=== PATIENT | male | born 2000 | race Caucasian/White ===

== ENCOUNTER 2024-10-25 14:04 | Emergency (ER) | payer OTHER ==
[2024-10-25] MEDS: Ketorolac 60 MG/2 ML SDV IM ONE (18:43)
[2024-10-25] MEDS: Lidocaine 1% 10 ML MDV INJECT ONE (19:10)
== END 2024-10-25 20:24 | disposition home or self-care (01) ==
LOC: JD.ED 14:04 → MERGE 14:04 → JD.ED 20:24
DX: S62.511A Displaced fracture of proximal phalanx of right thumb, initial encounter for closed fracture (principal); W27.8XXA Contact with other nonpowered hand tool, initial encounter
CPT/HCPCS: 26725; 73140; 96372; 99283; J1885; J3490